=== PATIENT | male | born 1950 | race Caucasian/White ===

== ENCOUNTER 2020-01-06 16:55 | Outpatient (REF) | payer OTHER, MEDICARE, SELFPAY ==
[2020-01-06 19:30] LABS: Calculated LDL 93 mg/dL (<100); Cholesterol 163 mg/dL (<200); HDL Cholesterol 36 mg/dL (40-60); Triglyceride 172 mg/dL (<150)
== END 2020-01-06 17:15 ==
LOC: NCHCN 16:55
PROVIDERS: PCP Family Medicine; Visit Provider Family Medicine
DX: E78.89 Other lipoprotein metabolism disorders (principal); Z13.6 Encounter for screening for cardiovascular disorders
CPT/HCPCS: 80061

== ENCOUNTER 2021-06-06 14:25 | Outpatient (REF) | payer BC, MEDICARE, SELFPAY ==
[2021-06-06 14:24] LABS: Hemoglobin A1C 5.7 % (<5.7)
[2021-06-07 10:53] LABS: Hepatitis C Ab w Rflx HCV PCR Negative (Negative)
== END 2021-06-06 14:26 | disposition home or self-care (01) ==
LOC: NCHCN 14:25
PROVIDERS: PCP Family Medicine; Visit Provider Family Medicine
DX: Z00.00 Encounter for general adult medical examination without abnormal findings (principal); Z13.1 Encounter for screening for diabetes mellitus; Z11.59 Encounter for screening for other viral diseases
CPT/HCPCS: 86803; 83036

== ENCOUNTER 2021-08-18 01:34 | Outpatient (CLI) | payer MEDICARE, SELFPAY ==
--- NOTE | 2021-08-18 13:55 | DI.RAD_ITS ---
Exam(s) XR CHEST 2V PA LATERAL EXAM: XR CHEST 2V PA LATERAL CLINICAL HISTORY: S/P COVID, COUGH,U09.9,R05.9,R05.3 TECHNIQUE: 2D digital imaging was performed of the chest. Two images were obtained. PA and lateral views were obtained. COMPARISON: No exams were available for comparison FINDINGS: MEDIASTINUM: Normal. HEART: Normal. PULMONARY VASCULATURE: Normal. LUNGS: Clear. PLEURAL SPACE: No pleural effusion or pneumothorax. BONE:Within normal limits for the patient's age. OTHER FINDINGS:Normal. IMPRESSION: No acute pulmonary findings. DATA REPOSITORY: RADIATION DOSE DELIVERED:
== END 2021-08-18 01:54 ==
PROVIDERS: PCP Family Medicine; Visit Provider Surgery
DX: K40.90 Unilateral inguinal hernia, without obstruction or gangrene, not specified as recurrent (principal); R05.3 Chronic cough; U09.9 Post COVID-19 condition, unspecified
CPT/HCPCS: 99212; 99214; 71046

== ENCOUNTER 2021-09-21 02:12 | Outpatient (CLI) | payer MEDICARE, SELFPAY ==
[2021-09-21 07:50] LABS: Source Nasal/Nares
[2021-09-21 10:34] LABS: COVID-19 PCR Negative (Negative)
== END 2021-09-21 02:13 | disposition home or self-care (01) ==
PROVIDERS: PCP Family Medicine; Visit Provider Surgery
DX: Z20.822 Contact with and (suspected) exposure to COVID-19 (principal); Z01.818 Encounter for other preprocedural examination
CPT/HCPCS: 87635

== ENCOUNTER 2021-09-23 06:07 | Day surgery (SDC) | payer MEDICARE, SELFPAY ==
--- NOTE | 2021-09-22 09:58 | HPE_ITS ---
Assessment and Plan Assessment and plan (1) Post-COVID chronic cough: Status: Acute (2) Right inguinal hernia: Status: Acute Assessment and plan: Risks of the surgery include but are not limited to: Bleeding/infection/pneumonia/damage to blood vessels or bladder or? bowels/blood clots or PE/chronic pain/urinary retention/chronic numbness/reoccurrence/reaction to mesh requiring removal/damage to testicle or sterility/complications of anesthesia.? The pt will have a pre-Op PE to ensure fitness for anesthesia.? The procedure will be done with abx and? under sterile conditions.? The pt requires a ride home from surgery and someone to stay with the pt for 24 hrs after anesthesia.? No lifting over 5 pounds for 2 weeks after surgery. (3) Actinic keratoses: (4) Chronic hoarseness: (5) Rosacea: (6) Varicose veins of left lower extremity: History of Present Illness Narrative: clinic 07/18: I did discuss with the patient and his that it sounds like he had an episode of incarceration of the hernia.? It is nontender today.? But I am unable to completely reduce the contents of the hernia sac.? And it does appear that th e hernia does contain bowel.? I do not feel this is an emergency.? But I do feel sometime within the next few months that he should have this repaired.? Patient wants to wait 18 months when he retires to have the hernia repaired.? Unfortunately it is impossible to say if he will have another episode of incarceration or not within the next 18 months.? But since he is already had 1 episode's, he will most likely have another and he should have this repaired within the coming weeks. We discussed what he could expect during the procedure postprocedure recovery time and risks.? I discussed the nature of inguinal hernias with the pt and his . I discussed the surgery in detail and the complications related to the surgery and the anesthesia. Pt. understands this, all questions were answered to the patient satisfaction and they signed the consent for surgery.? Patient was given an educational booklet. Risks of the surgery include but are not limited to: Bleeding/infection/pneumonia/damage to blood vessels or bladder or? bowels/blood clots or PE/chronic pain/urinary retention/chronic numbness/reoccurrence/reaction to mesh requiring removal/damage to testicle or sterility/complications of anesthesia.? The pt will have a pre-Op PE to ensure fitness for anesthesia.? The procedure will be done with abx and? under sterile conditions.? The pt requires a ride home from surgery and someone to stay with the pt for 24 hrs after anesthesia.? No lifting over 5 pounds for 2 weeks after surgery. -Family had picked a surgical date from this visit, patient unfortunately did contract COVID and we did have to delay his surgery. He is here today for surgery. His symptoms have been about the same. Mild right achy right-sided pain. He is here today for right inguinal hernia repair. Review of Systems All systems reviewed & are unremarkable except as noted in HPI and below PFSH All Active Problems Right inguinal hernia (Acute) Cough (Acute) Post-COVID chronic cough (Acute) Medical History Actinic keratoses Chronic hoarseness COVID 07/21/21 Rosacea Varicose veins of left lower extremity Social History Smoking/Tobacco Use Status: Never Smoking risk assessment performed?: Yes Alcohol Intake: current Alcohol Intake frequency: holidays/special occasions only Drug use: Never Substance use type: does not use Do you feel safe at home: Yes Do you feel safe in your relationship?: Yes Meds Allergies and Home Medications Allergies Allergy/AdvReac Type Severity Reaction Status Date / Time acetaminophen [From Percocet] AdvReac Intermediate Nausea Verified 09/23/21 06:33 oxycodone [From Percocet] AdvReac Intermediate Nausea Verified 09/23/21 06:33 Home Medications Medication Instructions Recorded Confirmed Type magnesium oxide 500 mg tablet 500 mg PO DAILY 07/14/21 09/23/21 History senna 187 mg tablet mg PO PRN PRN 09/23/21 History Exam Narrative Exam Narrative: PHYSICAL EXAM GENERAL APPEARANCE: Alert, healthy appearance, oriented, in no acute distress SKIN: No rashes.? No breakdown HYDRATION: Well hydrated HEAD, EYES, EARS, NECK, THROAT: Head is normocephalic, pupils equal, round, reactive to light and accommodation, ocular movement intact, sclera clear and no jaundice. ?Dentition intact. No sore throat.? NECK: Supple, Trachea midline. No JVD. LUNGS: normal respiration/nl chest excursion. ?Clear to auscultation B/l no R/R/W ?HEART: Regular rate and rhythm, EXTREMITY: No edema or cyanosis? no leg pain, redness, swelling.? ABDOMEN: non tender to palpation, no masses or distention, Normal bowel sounds RIH unchanged NEURO: no focal neuro deficits.
--- NOTE | 2021-09-22 10:50 | W.PM.DSUDISC ---
Discharge Plan Disposition Patient Disposition: HOME Condition: Good Discharge Details Reason For Visit: hernia repair Attending Provider: Alicia Horan Primary Care Provider: Kemal Brantley Home Meds and New Rx's Prescriptions: No Action magnesium oxide 500 mg tablet 500 mg PO DAILY Discharge Instructions Additional Instructions: Dr. Horan HERNIA REPAIR ? POSTOPERATIVE INSTRUCTIONS Patients who have this type of surgery can usually be expected to return to work within two weeks and have minimal amounts of discomfort. ? ACTIVITY: The day of surgery should be spent resting. However, you can be up for short periods of time, I.E., going to the bathroom or kitchen. Avoid lifting or straining. On the day following surgery, you can be up and about as desired. ? LIFTING: Restrict your lifting to no more than five (5) pounds for the first week following surgery. For the second week after surgery, don?t lift more than ten pounds.? We will decide when you are done with restrictions and when you can return to work, at your follow-up appointment.? No sexual activity for two weeks.? ? DIET: There are no dietary restrictions following surgery. However, you may want to start with small amounts of liquids to avoid nausea the day of surgery. ? INCISION CARE: You will notice purple skin glue closing the incision.? Do not peel this off- it will wear off on its own.? After 24 hours you may shower. The dressing may be replaced for comfort, but is not necessary. ?An ice bag may be applied to the incision for 72 hours following surgery. ? SIGNS OF INFECTION: It is not unusual to have some black and blue discoloration of the skin around the incision, but also scrotum and penis.? ?It will slowly disappear. If you have any increased redness, drainage, fever (above 100 degrees), please contact your doctor for an examination. ? DISCOMFORT: You may expect to have some mild discomfort at the incision sight. If severe pain develops you should contact your doctor for further instructions. ? URINATION: Patients who have surgery occasionally have problems urinating. If you experience problems and are not able to urinate within 6 hours following your surgery, please call your doctor immediately or go to your nearest Emergency Room for evaluation. ? DRIVING: NO driving for three (3) days after surgery, or if you are still taking narcotic pain medication.? ? MEDICATIONS: Alternate Tylenol 1000mg by mouth every 8 hours and Ibuprofen 600mg every 6 hours. ?Make sure you take ibuprofen with food and not on an empty stomach. ?Take the Tylenol and ibuprofen continuously for the first 72hrs- not just when you have pain.? Use the tramadol for breakthrough pain.? Use ICE!?? Twenty minutes on, and then off, continuously for the first 72hours. If you are taking narcotic pain medication, follow the instructions on the label and do not drive. Pain medications can make you very constipated. Make sure you are moving your bowels daily. If not, take Miralax, milk of magnesia or magnesium citrate.?? Anesthesia makes you very constipated.? Take a dose of milk of magnesia the morning after surgery. ? REPORT: Unusual swelling, severe pain, unresolved nausea, signs of infection, or difficulty in urination to your surgeon. Follow up in clinic with Dr. Horan in 2 weeks.? [phone] Activity:: see above Remove Dressings/Wound Care:: 24 hours Shower/Bathe:: 24 hours Diet:: As Tolerated Discharge Orders Discharge Orders: Discharge Order (Routine); Ordered 09/22/21 Ordered By: Alicia Horan DS: Diagnosis Discharge Diagnosis (1) Post-COVID chronic cough: Status: Acute (2) Right inguinal hernia: Status: Acute (3) Actinic keratoses: (4) Chronic hoarseness: (5) Rosacea: (6) Varicose veins of left lower extremity:
--- NOTE | 2021-09-22 14:06 | W.PM.DSUDISC ---
Discharge Plan Disposition Patient Disposition: HOME Condition: Good Discharge Details Reason For Visit: hernia repair Attending Provider: Alicia Horan Primary Care Provider: Kemal Brantley Home Meds and New Rx's Prescriptions: New tramadol [Ultram] 50 mg tablet 50 mg PO Q6H PRNQty: 10 0RF No Action magnesium oxide 500 mg tablet 500 mg PO DAILY Label Comments: Pt states this is liquid, not pill, he can not take pills.HE senna 187 mg Tablet PO PRN PRN Label Comments: Pt crushed these and got them down.HE Discharge Instructions Additional Instructions: Dr. Horan HERNIA REPAIR ? POSTOPERATIVE INSTRUCTIONS Patients who have this type of surgery can usually be expected to return to work within two weeks and have minimal amounts of discomfort. ? ACTIVITY: The day of surgery should be spent resting. However, you can be up for short periods of time, I.E., going to the bathroom or kitchen. Avoid lifting or straining. On the day following surgery, you can be up and about as desired. ? LIFTING: Restrict your lifting to no more than five (5) pounds for the first week following surgery. For the second week after surgery, don?t lift more than ten pounds.? We will decide when you are done with restrictions and when you can return to work, at your follow-up appointment.? No sexual activity for two weeks.? ? DIET: There are no dietary restrictions following surgery. However, you may want to start with small amounts of liquids to avoid nausea the day of surgery. ? INCISION CARE: You will notice purple skin glue closing the incision.? Do not peel this off- it will wear off on its own.? After 24 hours you may shower. The dressing may be replaced for comfort, but is not necessary. ?An ice bag may be applied to the incision for 72 hours following surgery. ? SIGNS OF INFECTION: It is not unusual to have some black and blue discoloration of the skin around the incision, but also scrotum and penis.? ?It will slowly disappear. If you have any increased redness, drainage, fever (above 100 degrees), please contact your doctor for an examination. ? DISCOMFORT: You may expect to have some mild discomfort at the incision sight. If severe pain develops you should contact your doctor for further instructions. ? URINATION: Patients who have surgery occasionally have problems urinating. If you experience problems and are not able to urinate within 6 hours following your surgery, please call your doctor immediately or go to your nearest Emergency Room for evaluation. ? DRIVING: NO driving for three (3) days after surgery, or if you are still taking narcotic pain medication.? ? MEDICATIONS: Alternate Tylenol 1000mg by mouth every 8 hours and Ibuprofen 600mg every 6 hours. ?Make sure you take ibuprofen with food and not on an empty stomach. ?Take the Tylenol and ibuprofen continuously for the first 72hrs- not just when you have pain.? Use the tramadol for breakthrough pain.? Use ICE!?? Twenty minutes on, and then off, continuously for the first 72hours. If you are taking narcotic pain medication, follow the instructions on the label and do not drive. Pain medications can make you very constipated. Make sure you are moving your bowels daily. If not, take Miralax, milk of magnesia or magnesium citrate.?? Anesthesia makes you very constipated.? Take a dose of milk of magnesia the morning after surgery. ? REPORT: Unusual swelling, severe pain, unresolved nausea, signs of infection, or difficulty in urination to your surgeon. Follow up in clinic with Dr. Horan in 2 weeks.? [phone] Activity:: see above Remove Dressings/Wound Care:: 24 hours Shower/Bathe:: 24 hours Diet:: As Tolerated Discharge Orders Discharge Orders: Discharge Order (Routine); Ordered 09/22/21 Ordered By: Alicia Horan DS: Diagnosis Discharge Diagnosis (1) Post-COVID chronic cough: Status: Acute (2) Right inguinal hernia: Status: Acute (3) Actinic keratoses: (4) Chronic hoarseness: (5) Rosacea: (6) Varicose veins of left lower extremity:
--- NOTE | 2021-09-22 14:06 | W.PM.OP ---
Operative Note Operative Note DATE OF PROCEDURE: 09/23/21 PRE-OP DIAGNOSIS: right inguinal hernia POST-OP DIAGNOSIS: other (Indirect inguinal hernia) SURGEON: Alicia Leroy ANESTHESIA TYPE: Local By Surgeon, General LMA/ETT and Primary Nerve Block Refer to Anesthesia Record ESTIMATED BLOOD LOSS: 5 PATHOLOGY: none sent COMPLICATIONS: None Patient was transported to: no change Patient's condition: stable Procedure Description: DESCRIPTION OF PROCEDURE:? The pt is then brought to the operative room suite. Anesthesia was administered per the Department of Anesthesia. ?A nerve block was performed by anesthesia under US guidance. The patient was prepped and draped in the usual sterile fashion using ChloraPrep scrub solution. Pause for the cause was done. He did receive preop IV antibiotics, and 30 mL of .25% Marcaine w/ epinephrine was used for local anesthetization. A #12 blade was used to make an incision over the external ring. Electrocautery used to provide hemostasis and dissect down to the fascia. The fascia was pretty much obliterated and there was nothing to open. The cord is elevated. The nerve was not identified. There is a small cord lipoma. This is excised using cautery. electro-cautery is used to provide hemostasis. A [place] drain was placed around the cord to assist in mobilization. The cord was explored. ?There was is moderate sized hernia sac on the cord. There is no direct hernia pushing through the floor. The hernia sac is dissected off the cord using a combination of blunt dissection and electrocautery.? Electrocautery is used to provide hemostasis.??The hernia sac was then opened. It does contain omentum. A high ligation of the sac was then performed using a 2-0 Vicryl to close the sac. The hernia sac is than inverted and returned to the abdominal cavity.? A XL size plug is than inserted into the defect through the internal ring, and over sewn to tighten up the ring with 2-0 vicryl.? Please see RN notes from Lot number of the Bard mesh patch/plug.? The cord structures are still able to freely move through the ring itself.? The patch was then placed onto the floor, and using 2-0 Vicryl, sewn into the pubic tubercle and the shelving portions of the inguinal ligament, in the standard Lichenstein fashion.? ?The tails of the mesh are brought around the cord, sewn together w/ 2-0 Vicryl, and tucked under the external oblique.? The wound was copiously irrigated. There was no bleeding noted. The drain was removed. All structures are returned to normal anatomical position. The nerve is not sewn into the mesh, nor caught up in any sutures. The external oblique is re-approximated using 2-0 vicryl in a running fashion. ?Deep tissue was approximated with 3-0 Vicryl in a running fashion, and skin was approximated with 4-0 Monocryl in a running subcuticular fashion. Skin glue and sterile dressings are applied. The patient tolerated the procedure without complications to recovery in stable condition. ALICIA LEROY, DO
[2021-09-23] VITALS (10 sets, daily range): BP systolic 80–135; BP diastolic 44–73; PULSE 46–63; RESP 13–19; TEMP 36.2–36.6; O2SAT 93–98; BMI 29.8
--- OUTSIDE RECORDS SUMMARY | 2021-09-23 06:08 | XMS_ITS | Encounter Summary ---
:1950 Author Organization [facility] [place] [address] Care Team Providers Name Role Phone Bashir Malin MD Primary Care Provider Reason for Visit Reason Comments Rosacea Encounter Details Date Type Department Care Team Description 05/30/2010 Office Visit Dermatology Lonnie Del Valle, Rosacea (Primary Dx) [address] [place], [place] DERMATOLOGY [address] [place] [address] [phone] (Wo rk) Social History Tobacco Use Types Packs/Day Years Used Date Never Assessed Sex Assigned at Date Recorded Not on file documented as of this encounter Plan of Treatment Not on filedocumented as of this encounter Visit Diagnoses Diagnosis Rosacea - Primary documented in this encounter 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
--- OUTSIDE RECORDS SUMMARY | 2021-09-23 06:09 | XMS_ITS | Encounter Summary ---
:1950 Demographics Home Phone Preferred Language Unknown Marital Status Unknown Evangelical Affiliation Unknown Race Unknown Ethnic Group Unknown Author Organization [facility] Address [address] [place] [address] Care Team Providers Name Role Phone Unavailable Primary Care Provider Unavailable Encounter Details Date Type Department Care Team Description 06/06/2021 Lab Requisition [facility] Outr Resulting Lab, Pathology & Laboratory Provider [facility] [address] [place] [address] Social History Tobacco Use Types Packs/Day Years Used Date Never Assessed Sex Assigned at Date Recorded Not on file documented as of this encounter Plan of Treatment Not on filedocumented as of this encounter Procedures Procedure Name Priority Date/Time Associated Diagnosis Comme nts HEPATITIS C AB W Routine 06/06/2021 10:20 Results for this REFLEX TO HCV RNA EDT procedure are in BY PCR the results section. documented in this encounter Results HEPATITIS C AB W REFLEX TO HCV RNA BY PCR (06/06/2021 10:20 EDT) Pathologist Sig nature Hep C Antibody Negative Negative [facility] Specimen Blood - Venous blood (substance) Performing Organization Address City/State/ZIP Code Phon e Number [facility] [address] [place] [address] SERVICES documented in this encounter Visit Diagnoses Not on filedocumented in this encounter
[2021-09-23] MEDS: Lactated Ringers 1,000 ML 80 ML IV (06:58)
--- NOTE | 2021-09-23 07:02 | ANES.PREOP_ITS ---
General Info Date of Service Date Performed: 09/23/21 Height: 5 ft 11 in Weight: 97.1 kg Body Mass Index (BMI): 29.8 Surgical Procedure: Operation Date: 09/23/21 07:40 Proposed Procedure Side Surgeon p Herniorrhaphy Inguinal w/Mesh Right DO Eleazar Sanchez Allergies and Home Medications Allergies Allergy/AdvReac Type Severity Reaction Status Date / Time acetaminophen [From Percocet] AdvReac Intermediate Nausea Verified 09/23/21 06:33 oxycodone [From Percocet] AdvReac Intermediate Nausea Verified 09/23/21 06:33 Home Medication Medication Instructions Recorded magnesium oxide 500 mg tablet 500 mg PO DAILY 07/14/21 senna 187 mg tablet mg PO PRN PRN 09/23/21 Current Visit Medications: Current Medications Generic Name Dose Route Start Last Admin Trade Name Freq PRN Reason Stop Dose Admin Acetaminophen 1,000 mg 09/23/21 06:00 Acetaminophen 500 Mg Tab PO 09/23/21 16:00 PREOP CORTEZ Gabapentin 600 mg 09/23/21 06:00 Gabapentin 300 Mg Cap PO 09/23/21 16:00 PREOP [facility] Ondansetron HCl 4 mg/ Sodium 52 mls @ 200 mls/hr 09/23/21 07:49 Chloride IVPB Q6H PRN PRN Ringer's Solution 1,000 mls @ 80 mls/hr 09/23/21 06:00 09/23/21 06:58 IV 10/22/21 23:59 80 mls/hr INFUSION CORTEZ Administration Cefazolin Sodium/Dextrose 2 gm in 50 mls @ 100 mls/hr 09/23/21 06:00 Ancef Duplex IVPB 09/23/21 16:00 PREOP [facility] IV Miscellaneous Supplies 1 each 09/23/21 06:00 Iv Access IV 10/22/21 23:59 DIRECTED CORTEZ Morphine Sulfate 2 mg 09/23/21 07:49 Morphine 4 Mg/Ml Syr IVP Q1H PRN PRN Sodium Chloride 0 ml 09/23/21 06:00 Normal Saline Flush 10 Ml Syr IV 10/22/21 23:59 PRN PRN Sodium Chloride 0 ml 09/23/21 06:00 Normal Saline 10 Ml Vial IJ 10/22/21 23:59 DIRECTED PRN Sterile Water 0 ml 09/23/21 06:00 Water,Injection,Sterile 10 Ml Vial IJ 10/22/21 23:59 DIRECTED PRN Tramadol HCl 50 mg 09/23/21 07:49 Tramadol 50 Mg Tab PO Q6H PRN PRN Pain PFSH Active Problems Active Problems: Problem Status Onset Code Right inguinal hernia K40.90 Cough R05.9 Post-COVID chronic cough R05.3, U09.9 Medical History Medical History Actinic keratoses Chronic hoarseness COVID 07/21/21 Rosacea Varicose veins of left lower extremity Tobacco Smoking/Tobacco Use Status: Never Alcohol Alcohol Intake: current Alcohol intake frequency: holidays/special occasions only Substance Use Substance use: Never Substance use type: does not use Vital Signs and Lab Results Vital Signs Most Recent Vital Signs in EMR: Most Recent Vital Signs Temp Pulse Resp BP Pulse Ox 36.6 C 63 18 135/70 98 09/23/21 06:21 09/23/21 06:21 09/23/21 06:21 09/23/21 06:21 09/23/21 06:21 Lab Results Blood Type / Crossmatch: No Data to Display Complete Blood Count: No Data to Display Complete Metabolic Panel: No Data to Display Liver Function Panel: No Data to Display Coagulation Panel: No Data to Display Cardiac Panel: No Data to Display Arterial Blood Gas: No Data to Display Venous Blood Gas: No Data to Display Pancreas Panel: No Data to Display Thyroid Panel: No Data to Display Infectious Disease: Coronavirus (COVID-19)(PCR) Negative (Negative) 09/21/21 07:45 Coronavirus 2019 Source Nasal/Nares 09/21/21 07:45 Blood Cultures: No Data to Display Toxicology Panel: No Data to Display Anesthesia Assessment and Plan Anesthesia History Personal History: No History of General Anesthesia Family History: No Family History of Anesthesia Complications Exercise Tolerance Exercise Tolerance: Metabolic Equivalents>4 Pertinent Negatives Pertinent Negatives: No Symptoms of GERD, No Major Cardiovascular Symptoms or Complaints, No Major Pulmonary Symptoms or Complaints and No History of CVA/TIA Cardiac & Pulmonary Exam Cardiac Exam: Normal S1/S2 Heart Sounds Pulmonary Exam: Clear Bilateral Breath Sounds Implantable Cardiac Device Does patient have a Pacemaker or an ICD?: No Airway Exam Known Difficult Airway: No Mallampati Class: 1 Mouth Opening: Normal (> 3cm) Thyromental Distance: Greater than 3 cm Neck Range of Motion: Full ROM Neck Circumference: Normal Teeth Condition: Normal Dentition ASA Classification ASA Score: ASA 2 Emergency Case?: No NPO Status NPO Status: NPO Clears >2 hours, Solids >8 hours Anesthesia Plan Resuscitation Status: Full Code Anesthesia Technique: General Anesthesia Airway Planned: LMA Pain Management: Surgeon and patient request nerve block Monitors Used: Standard Monitors
[2021-09-23] MEDS: ceFAZolin 2 GM/50 ML BAG IVPB (07:57)
--- NOTE | 2021-09-23 08:09 | W.ANESNERVE ---
Nerve Block Single Injection Procedure Date and Time Date Performed: 09/23/21 Procedure Start: 07:52 Location Where Procedure Performed Procedure Location: Operating Room Procedure Stop: 07:58 Reason Performed: Postoperative Analgesia Requesting Provider: Alicia Horan Timeout Performed Timeout Performed: Yes Monitoring Used ECG, Blood Pressure, SpO2 and ETCO2 Sterility Sterility: Hand Hygiene, Surgical Cap, Surgical Mask, Sterile Gloves and Chlorhexidine Sedation Given During Procedure Sedation Given (Indicate Dose Given): No Sedation given Patient Mental Status Patient Mental Status: Performed under general anesthesia Nerve Block 1st Nerve Block: Laterality: Right Block Type: TAP Unilateral Needle / Catheter Used: 100mm SonoPlex II Local Anesthetic Bolus (Indicate Dose Given): Injected in 3-5ml increments after negative blood aspiration and Bupivacaine 0.25% Dose:: 30 ml Additives (Indicate Dose Given): Precedex Dose:: 90 Ultrasound: Sterile probe cover and gel used Ultrasound Image Saved?: Yes Nerve Stimulator: Not Used Paresthesia: None Procedure Tolerated: No Complications and Patient tolerated well Procedure Outcome: Successful Performed By: Kai Dupree
[2021-09-23] MEDS: Bupivacaine 0.25% Pres-Free W/EPI 30 ML VIAL (08:43)
[2021-09-23] MEDS: Ketorolac 15 MG/ML VIAL IVP (09:15)
--- NOTE | 2021-09-23 09:57 | W.ANESPOSTOP ---
Postoperative Evaluation Date, Time and Location Date Performed: 09/23/21 Time Performed: 09:58 Patient Location: Day Surgery Unit Vital Signs Most Recent Imported Vital Signs: Most Recent Vital Signs Temp Pulse Resp BP Pulse Ox 36.3 C L 57 L 13 135/70 95 09/23/21 09:45 09/23/21 09:45 09/23/21 09:45 09/23/21 09:45 09/23/21 09:45 Pain Score Most Recent Pain Score: Most Recent Pain Score Pain Level 0 09/23/21 09:45 Assessment Mental Status: Awake (Alert & Oriented to Patient Baseline) Airway and Respiratory Function: Patent airway with normal (patient baseline) respiratory exam Cardiovascular Function: Hemodynamically Stable Hydration Status: Adequately Hydrated Nausea & Vomiting: No Nausea or Vomiting Pain: Pt. Denies Any Pain Peripheral Nerve Block: Regional nerve block not resolved at time of post operative discharge
== END 2021-09-23 12:37 | disposition home or self-care (01) ==
PROVIDERS: PCP Family Medicine; Visit Provider Surgery
PROC: (CPT 49505; principal; 2021-09-23 07:30)
DX: K40.90 Unilateral inguinal hernia, without obstruction or gangrene, not specified as recurrent; R05.3 Chronic cough; U09.9 Post COVID-19 condition, unspecified; D17.6 Benign lipomatous neoplasm of spermatic cord
CPT/HCPCS: 49505; 55520; 76942; C1781; J0131; J0690; J1100; J1885; J2405; J2704

== ENCOUNTER → 2021-10-03 10:22 | Outpatient (BNVA) | payer MEDICARE, SELFPAY | PROVIDERS: PCP Family Medicine; Referring Provider Family Medicine; Visit Provider Surgery | DX: Z48.817 Encounter for surgical aftercare following surgery on the skin and subcutaneous tissue (principal); Z98.890 Other specified postprocedural states; Z87.19 Personal history of other diseases of the digestive system ==